=== PATIENT | female | born 1965 | race Caucasian/White ===

== ENCOUNTER 2024-07-31 07:35 | Outpatient (REF) | payer OTHER, SELFPAY ==
--- OUTSIDE RECORDS SUMMARY | 2024-07-31 07:38 | XMS_ITS | Data Portability ---
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 [email or web address] Not available 03/28/2024 15:41:39 04/05/2024 04/05/2024 I am seeing the patient today under the supervision of Dr Robbins who was available but who did not see the patient. [email or web address] Not available 04/05/2024 14:36:01 04/11/2024 04/11/2024 I am seeing the patient today under the supervision of Dr Robbins who was available but who did not see the patient. [email or web address] Not available 04/11/2024 14:15:36 05/02/2024 05/02/2024 I am seeing the patient today under the supervision of Dr Robbins who was available but who did not see the patient. [email or web address] Not available 05/02/2024 14:01:01 06/27/2024 06/27/2024 I am seeing the patient today under the supervision of Dr Robbins who was available but who did not see the patient. [email or web address] Not available 06/27/2024 14:57:44 Plan of Treatment Reminders Order Date Submit Date Provider Last Modified By Organization Details Last Modified Time Details Appointments RECHECK 15 2024 01:00P M Sony Zwirko, PA-C Not available Not available Not available Lab None recorded. Referral None recorded. Procedures None recorded. Surgeries None recorded. Imaging MRI, knee, w/o contrast - MRI RIGHT KNEE W/O CONTRAST EVAL FOR MMT 2024 025 [facility] ([facility] [address], [place], [address], 04/04/2024 09:07:59 Medication Orders None recorded. Patient TargetsNo targets recorded. Patient InstructionsNo instructions recorded. Reason for Referral None Reported. Results Created Date Observation Date Name Description Value Unit Range Abnormal Flag Note LastModifiedBy Organization Detail LastModifiedTime 03/25/19 25 03/25/2024 XR, knee, 4 or more view No observ ation record ed. [facility] [address], [place], [address], 03/29/2024 14:26:17 04/04/19 25 04/02/2024 MRI, knee, w/o contr ast [facility] Access ion Number : [id number] Jamari t Name: Natalie Spears Record Number : [id number] Date of : 1965 Date of Exam: 2024 Referr ing Physic burton: [facility] [address], [address] [facility] [address] Exam: MR Knee (C-) CPT 60388 - Right Room Descri ption: [facility] Pion 3T MRI right knee Histor y: Pain Findin gs: Medial menisc us is intact . Mild thinni ng and irregu larity within vehicle and equipment cleaner ior weight bearin g surfac e cartil age of the medial femora l condyl e near the interc ondyla r notch. Latera l menisc us is intact . 1 x 1.5 cm focal chondr al defect within vehicle and equipment cleaner ior nonwei ghtbea ring surfac e cartil age of the latera l femora l condyl e on image 11 of series 3. The ACL and PCL are intact The MCL is intact The LCL comple x includ ing the biceps femori s, poplit eus and fibula r collat eral ligame nts are intact The medial and latera l patell ar retina cula are intact . Diffus e absenc e of patell ar cartil age. Thinni ng, irregu larity and fissur ing within trochl ear groove cartil age. Small patell ofemor al osteop hytes The extens or mechan ism is intact . Locula rabia Crawford' s cyst measur es up to 3 cm AP by 12 cm cranio caudal . Most caudal portio n of the Crawford' s cyst is mildly comple x and has some mass effect on the underl silvana medial head of the gastro cnemiu s muscle . Impres robin: No eviden ce of menisc us or ligame nt tear. Medial compar tment, latera l compar tment and advanc ed patell ofemor al compar tment chondr omalac ia is outlin ed above. Small patell ofemor al compar tment osteop hytes. Large locula rabia Crawford' s cyst as detail ed above Electr onical ly Signed By: Estela Kim MD [email or web address] [facility] ([facility]) [address] [place], [address], 04/05/2024 06:58:45 Result Notes None recorded. Problems Name Problem SNOMED Code Status Onset Date Resolution Date Notes Provider Name and Address Organization Details Recorded Time Trigger thumb of left hand 966201261292 107 Active 2023 Sony Hernandez PA-C [address], [place], [address] , [facility] 4 14:24:47 Impingeme nt syndrome of right shoulder region 769460099070 102 Active 2023 Sony Hernandez PA-C [address], [place], [address] , [facility] - [facility] 4 14:24:55 Pain in right lower limb 080004839 Active 2024 [place], [place] - [facility] 5 15:15:54 Osteoarth ritis of right knee joint 246095529219 100 Active 2024 Sony Hernandez PA-C [address], [place], [address] , [facility] - [facility] 5 14:15:37 Primary gonarthro sis, bilateral 581029267 Active 2024 Sony Hernandez PA-C [address], [place], [address] , [facility] - [facility] 5 14:57:31 Pain of right shoulder region Active 2024 Sony Hernandez PA-C [address], [place], [address] , [facility] - [facility] 5 14:57:38 Lateral epicondyl itis of left humerus 559618199075 100 Active 2017 Problem Code: M77.12; Problem Code Type: ICD-10; Status: 'A'; Not Available [facility] 4 10:55:47 Chondroma lacia of left patella 040837045740 106 Active 2017 Problem Code: M22.42; Problem Code Type: ICD-10; Status: 'A'; Not Available [facility] 4 10:55:47 Carpal tunnel syndrome of left wrist 961432782456 102 Active 2017 Problem Code: G56.02; Problem Code Type: ICD-10; Status: 'A'; Not Available [facility] 4 10:55:47 Bursitis of left knee 773050696526 9109 Active 2017 Problem Code: M70.52; Problem Code Type: ICD-10; Status: 'A'; Not Available [facility] 4 10:55:47 Lesion of right ulnar nerve 443843340137 103 Active 2017 Problem Code: G56.21; Problem Code Type: ICD-10; Status: 'A'; Not Available [facility] 4 10:55:47 Osteoarth ritis of left knee joint 900473630034 109 Active 2023 Sony Hernandez PA-C [address], [place], [address] , [facility] 15:41:43 Problem Notes None recorded. Procedures Surgical History Date Name Laterality Status Provider Name and Address Organization Details Recorded Time 5 JZShoulder INJ completed Sony Hernandez PA-C [address], [place], [address], [facility] 06/27/2024 14:57:21 5 JZKNEE INJ Dragan completed Sony Hernandez PA-C [address], [place], [address], [facility] 06/27/2024 14:56:40 5 JZKNEE INJ completed Sony Hernandez PA-C [address], [place], [address], [facility] 05/02/2024 14:00:58 5 Euflexxa Knee Injection completed Sony Hernandez PA-C [address], [place], [address], [facility] 04/11/2024 14:15:52 5 JZKNEE INJ completed Sony Hernandez PA-C [address], [place], [address], [facility] 04/05/2024 14:46:52 5 Euflexxa Knee Injection completed Sony Hernandez PA-C [address], [place], [address], [facility] 04/05/2024 14:46:48 5 JZ Knee Aspiration completed Sony Hernandez PA-C [address], [place], [address], [facility] 03/28/2024 15:41:31 5 Euflexxa Knee Injection completed Sony Hernandez PA-C [address], [place], [address], [facility] 03/28/2024 15:40:32 4 JZKNEE INJ Dragan completed Sony Hernandez PA-C [address] [facility], [place], [address], [facility] 01/25/2024 13:30:33 4 JZ Knee Aspiration completed Sony Hernandez PA-C [address] [facility], [place], [address], [facility] 11/23/2023 14:45:29 4 JZKNEE INJ completed Sony Hernandez PA-C [address] [facility], [place], [address], [facility] 08/24/2023 14:24:38 4 JZShoulder INJ completed Sony Hernandez PA-C [address] [facility], [place], [address], [facility] 08/24/2023 14:24:31 4 JZTrigger Finger Injection completed Sony Hernandez PA-C [address] [facility], [place], [address], [facility] 08/24/2023 14:24:36 4 JZKNEE INJ completed Sony Hernandez PA-C [address] [facility], [place], [address], [facility] 06/22/2023 10:30:18 4 Sports Knee Aspiration completed Sony Hernandez PA-C [address] [facility], [place], [address], [facility] 05/11/2023 13:43:25 Imaging Results None recorded. Procedure Notes None recorded. Medical Equipment None Reported. Allergies Allergen ID Allergen Name Allergen Category Reaction Reaction Severity Criticality Documentation Date Start Date Code Code System Note Provider Name and Address Organization Details Recorded Time 67941 Bactrim medicatio n Not available Not available Not available 04/25/20232010 22609 9 RxNorm Aller gyRea ction : 'Skin React ion'; Not Available [facility] 15:13:19 86077 Substance with sulfonami de structure and antibacte rial mechanism of action (substanc e) medicatio n Not available Not available Not available 04/25/20232010 74279 8003 SNOMED Aller gyRea ction : 'Skin React ion'; Not Available [facility] 4 15:13:19 91838 Macrobid medicatio n Not available Not available Not available 04/25/20232010 54578 1 RxNorm Aller gyRea ction : 'Skin React ion'; Not Available [facility] 15:13:19 Medications Name Sig Start Date Stop Date Status Note LastModified by Organization Details LastModified Time hydrocodone 7.5 mg-ibuprofe n 200 mg tablet TAKE 1 TABLET BY MOUTH THREE TIMES A DAY NEEDED FOR PAIN 05/10 completed Not Available Not Available Not Available terconazole 0.4 % vaginal cream INSERT 1 APPLICATO RFUL VAGINALLY AT BEDTIME FOR 7 DAYS 05/10 completed Not Available Not Available Not Available promethazin e-DM 6.25 mg-15 mg/5 mL oral syrup TAKE 5 MILLILITE RS BY MOUTH EVERY 4 HOURS NEEDED FOR COUGH 06/27 completed Not Available Not Available Not Available prednisone 10 mg tablet 4 TABS DAILY X4 DAYS, 3 TABS DAILY X4 DAYS, 2 TABS DAILY X4 DAYS THEN 1 TAB DAILY FOR 4 DAYS. 05/10 completed Not Available Not Available Not Available doxycycline hyclate 100 mg capsule TAKE 1 CAPSULE BY MOUTH TWICE A DAY FOR 10 DAYS 05/10 completed Not Available Not Available Not Available ipratropium 0.5 mg-albutero l 3 mg (2.5 mg base)/3 mL nebulizatio n soln USE 1 VIAL VIA NEBULIZER 4 TIMES A DAY NEEDED FOR 30 DAYS 11/22 completed Not Available Not Available Not Available azithromyci n 250 mg tablet TAKE 2 TABLETS BY MOUTH TODAY, THEN TAKE 1 TABLET DAILY FOR 4 DAYS 05/10 completed Not Available Not Available Not Available tizanidine 4 mg tablet TAKE 1 TABLET BY MOUTH EVERY 8 HOURS NEEDED active Not Available Not Available No t Available fluconazole 150 mg tablet TAKE 1 TABLET BY MOUTH ONCE AT THE END OF ANTIBIOTI C THERAPY active Not Available Not Available No t Available benzonatate 200 mg capsule TAKE 1 CAPSULE (ORAL) 3 TIMES PER DAY NEEDED FOR COUGH FOR 5 DAYS 11/22 completed Not Available Not Available Not Available Retin-A 0.1 % topical cream APPLY PEA SIZED AMOUNT TO ENTIRE FACE AT BEDTIME active Not Available Not Available No t Available prednisone 20 mg tablet TAKE 1 TABLET BY MOUTH EVERY DAY FOR 5 DAYS 11/22 completed Not Available Not Available Not Available clonazepam 0.5 mg tablet TAKE 1-3 TABLETS BY MOUTH EVERY DAY NEEDED MAX 3/DAY active Not Available Not Available No t Available prednisone 5 mg tablet TAKE 1 TABLET BY MOUTH EVERY DAY FOR 30 DAYS 05/10 completed Not Available Not Available Not Available terconazole 0.8 % vaginal cream INSERT 1 APPLICATO RFUL VAGINALLY AT BEDTIME FOR 3 DAYS 05/10 completed Not Available Not Available Not Available clonazepam 1 mg tablet active Not Available Not Available Not Available venlafaxine ER 150 mg capsule,ext ended release 24 hr TAKE 1 CAPSULE BY MOUTH TWICE A DAY FOR 30 DAYS active Not Available Not Available No t Available butalbital 50 mg-acetamin ophen 325 mg tablet TAKE 1 TABLET BY MOUTH DAILY NEEDED FOR TENSION TYPE HEADACHE active Not Available Not Available No t Available topiramate 25 mg tablet PLEASE SEE ATTACHED FOR DETAILED DIRECTION S active Not Available Not Available No t Available ciprofloxac in 250 mg tablet TAKE 1 TABLET BY MOUTH EVERY 12 HOURS FOR 5 DAYS 05/10 completed Not Available Not Available Not Available tramadol 50 mg tablet TAKE 1 TABLET EVERY 6 HOURS BY ORAL ROUTE AFTER MEAL(S). active Not Available Not Available No t Available amoxicillin 875 mg tablet TAKE 1 TABLET BY MOUTH TWICE A DAY FOR 7 DAYS 11/22 completed Not Available Not Available Not Available rizatriptan 10 mg disintegrat ing tablet PLEASE SEE ATTACHED FOR DETAILED DIRECTION S active Not Available Not Available No t Available pantoprazol e 40 mg tablet,brandon yed release TAKE 1 TABLET BY MOUTH EVERY DAY active Not Available Not Available No t Available dexamethaso ne 4 mg tablet TAKE 1 TABLET (4 MG TOTAL) BY MOUTH DAILY WITH BREAKFAST FOR 5 DAYS. TAKE WITH FOOD. 06/27 completed Not Available Not Available Not Available prednisone 50 mg tablet TAKE 1 TABLET BY MOUTH EVERY DAY FOR 5 DAYS 05/10 completed Not Available Not Available Not Available betamethaso ne dipropionat e 0.05 % topical cream APPLY TO AFFECTED AREA ON BACK TWICE A DAY NEEDED , WEAN OFF IMPROVE 11/22 completed Not Available Not Available Not Available gabapentin 300 mg capsule TAKE 1 CAPSULE (300 MG) BY ORAL ROUTE 1 TIMES A DAY active Not Available Not Available No t Available clindamycin 2 % vaginal cream INSERT 1 APPLICATO RFUL VAGINALLY EVERY DAY AT BEDTIME FOR 5 DAYS 06/27 completed Not Available Not Available Not Available norethindro ne acetate 5 mg tablet TAKE TWICE A DAY FOR 7 DAYS 05/10 completed Not Available Not Available Not Available lorazepam 1 mg tablet TAKE 1 TABLET NEEDED ORALLY UP TO EVERY 8 HOURS active Not Available Not Available No t Available estradiol 0.01% (0.1 mg/gram) vaginal cream INSERT 1 GRAM VAGINALLY 3 TIMES EVERY WEEK active Not Available Not Available No t Available methylpredn isolone 4 mg tablets in a dose pack TAKE 6 TABLETS ON DAY 1 DIRECTED ON PACKAGE AND DECREASE BY 1 TAB EACH DAY FOR A TOTAL OF 6 DAYS 06/27 completed Not Available Not Available Not Available albuterol sulfate HFA 90 mcg/actuati on aerosol inhaler INHALE 1 PUFF EVERY 6 HOURS NEEDED active Not Available Not Available No t Available doxycycline hyclate 100 mg tablet TAKE 1 TABLET BY MOUTH TWICE A DAY FOR 7 DAYS 06/27 completed Not Available Not Available Not Available fluticasone propionate 110 mcg/actuati on HFA aerosol inhaler INHALE 2 PUFFS BY MOUTH TWICE A DAY active Not Available Not Available No t Available naproxen 500 mg tablet TAKE 1 TABLET BY MOUTH EVERY 12 HOURS NEEDED active Not Available Not Available No t Available amoxicillin 875 mg-potassiu m clavulanate 125 mg tablet TAKE 1 TABLET BY MOUTH EVERY 12 HOURS FOR 10 DAYS 06/27 completed Not Available Not Available Not Available azithromyci n 500 mg tablet TAKE 1 TABLET BY MOUTH DAILY DIRECTED 05/10 completed Not Available Not Available Not Available cyclobenzap rine 5 mg tablet TAKE 1 TABLET 1 HOUR BEFORE BED active Not Available Not Available No t Available nitrofurant oin monohydrate /macrocryst als 100 mg capsule TAKE 1 CAPSULE BY MOUTH TWICE A DAY FOR 5 DAYS 06/27 completed Not Available Not Available Not Available chlorhexidi ne gluconate 0.12 % mouthwash RINSE WITH 15 ML, HOLD FOR 30 SECONDS AND EXPECTORA TE TWICE A DAY FOR 7 DAYS START DAY AFTER SURGERY 05/10 completed Not Available Not Available Not Available gabapentin Gabapenti n 250MG/5ML Solution 04/25 completed Statu s: 'Disc ontin ued'; Not Available Not Available Not Available Symbicort 160 mcg-4.5 mcg/actuati on HFA aerosol inhaler INHALE 1 PUFF BY MOUTH TWICE A DAY FOR 14 DAYS 06/27 completed Not Available Not Available Not Available Symbicort 80 mcg-4.5 mcg/actuati on HFA aerosol inhaler TAKE 2 PUFFS BY MOUTH TWICE A DAY IN THE MORNING AND IN THE EVENING active Not Available Not Available No t Available naltrexone HCl (bulk) 100 % powder active Not Available Not Available Not Available diclofenac 1 % topical gel APPLY 1 GRAM 4 TIMES A DAY NEEDED FOR PAIN active Not Available Not Available No t Available Botox 200 unit injection 05/10 completed Not Available Not Available Not Available Slow Release Iron 143 mg (45 mg iron) tablet,exte nded release TAKE 1 TABLET BY MOUTH THREE TIMES A DAY active Not Available Not Available No t Available Myrbetriq 50 mg tablet,exte nded release TAKE 1 TABLET BY MOUTH EVERY DAY DIRECTED active Not Available Not Available No t Available Ubrelvy 100 mg tablet TAKE 1 TABLET BY MOUTH ONCE MAY REPEAT DOSE ONCE AFTER 2 HOURS IF NEEDED, MAX 200MG/24H R active Not Available Not Available No t Available [facility] ODT 75 mg disintegrat ing tablet TAKE 1 TABLET ON TONGUE, DISSOLVE THEN SWALLOW ONCE NEEDED FOR MIGRAINE MAX 1/24 HRS X30 DAYS 06/27 completed Not Available Not Available Not Available Vitals Date Recorded Body height Body mass index (BMI) Body weight Provider Name and Address Organization Details Last Updated DateTime 03/28/2024 162.56 cm 18.4 kg/m2 00021.38 g Martin Omer [place] - [facility] 03/28/2024 15:04:33 Date Recorded Body height Body mass index (BMI) Body weight Provider Name and Address Organization Details Last Updated DateTime 04/05/2024 162.56 cm 18.4 kg/m2 15775.38 g Martin Omer [facility] 04/05/2024 14:36:23 Date Recorded Body height Provider Name an d Address Organization Details Last Updated DateTime 04/11/2024 162.56 cm Librado Ingram-C [address], [place], [address], [facility] 04/11/2024 14:15:39 Date Recorded Body height Body mass index (BMI) Body weight Provider Name and Address Organization Details Last Updated DateTime 05/02/2024 162.56 cm 18.4 kg/m2 38282.38 g [facility] 05/02/2024 13:30:39 Date Recorded Body height Body mass index (BMI) Body weight Provider Name and Address Organization Details Last Updated DateTime 06/27/2024 162.56 cm 18.4 kg/m2 31886.38 g Martin [facility] 06/27/2024 14:46:23 Social History None recorded. Functional Status None recorded. Mental Status None recorded. Family History Nothing Reported. Medical History No medical history recorded. Gynecological HistoryNo gynecological history recorded. Obstetrics History GPAL:G 0 P 0 0 0 0 Past Encounters Encounter ID Performer Location Encounter Start Date Encounter Closed Date Diagnosis/Indication Diagnosis SNOMED-CT Code Diagnosis ICD10 Code Diagnosis Note [id number] MD Freya Sainz [address] [place] [address] 05/11/2023 13:16:52 05/11/2023 13:41:59 Bursitis of left knee 1207334046 661584 M70.52 Osteoarthr itis of left knee joint 1966303154 24293 M17.12 [id number] WARREN Ingram [address] [place] [address] 06/22/2023 09:59:41 07/13/2023 14:44:21 Osteoarthritis of left knee joint 0886739523 57036 M17.12 [id number] Sony Hernandez PA-C [facility] [address] [place] [address] 08/24/2023 13:32:07 09/22/2023 10:12:58 Bursitis of left knee 8786513449 496274 M70.52 Trigger th umb of left hand 4232185851 32316 M65.312 Impingemen t syndrome of right shoulder region 7672679816 31648 M75.41 [id number] Sony Hernandez PA-C [facility] [address] [place] [address] 11/23/2023 14:26:42 11/23/2023 14:54:15 Bursitis of left knee 3659952559 252293 M70.52 [id number] Sony Hernandez [facility]-C [facility] [address] [place] [address] 01/25/2024 12:56:03 02/21/2024 08:16:12 Bursitis of left knee 4830919450 835599 M70.52 Primary go narthrosis, bilateral 131412108 M17.0 [id number] Sony Hernandez PA-C [facility] - [facility] [address] [place] [address] 03/28/2024 14:58:29 04/11/2024 15:12:47 Derangement of right knee 2429077613 0450271 M23.91 Osteoarthr itis of left knee joint 1156008278 87110 M17.12 [id number] Sony Hernandez PA-C [facility] [address] [place] [address] 04/05/2024 14:32:09 04/24/2024 09:03:28 Osteoarthritis of left knee joint 0655519905 45467 M17.12 Osteoarthr itis of right knee joint 8342053512 41542 M17.11 [id number] Sony Hernandez PA-C [facility] - [facility] [address] [place] [address] 04/11/2024 14:08:01 04/27/2024 11:55:54 Osteoarthritis of left knee joint 3614988219 44776 M17.12 [id number] WARREN Ingram [facility] [address] [place] [address] 05/02/2024 13:25:17 05/17/2024 13:17:34 Bursitis of left knee 2857977943 337115 M70.52 [id number] WARREN Ingram - [facility] [address] [place] [address] 06/27/2024 14:40:01 07/13/2024 11:13:21 Primary gonarthrosis, bilateral 915173237 M17.0 Pain of ri ght shoulder region 0953974541 M25.511 Health Concerns Section Related Observation LastModified by Organization Detai ls LastModified Time None Recorded Concern Status LastModified by Organization Details LastModified Time None Recorded Advance Directives Directive None Recorded Payers Encounter Date Sequence Insurance Name Policy Number Policy Ibarra Covered Member ID Ibarra Member ID Guarantor Name 03/28/2024 1 [employer] Rosie Spears [id number] Rosie Spears 04/05/2024 1 [employer] Rosie Spears [id number] Rosie Spears 04/11/2024 1 [employer] Rosie Spears [id number] Rosie Spears 06/27/2024 1 [employer] Rosie Spears [id number] Rosie Spears OBGyn Episode No OBEpisode recorded.
== END 2024-07-31 07:36 | disposition home or self-care (01) ==
LOC: CF 07:35
DX: Z13.89 Encounter for screening for other disorder (principal)

== ENCOUNTER 2024-07-31 13:12 | Outpatient (AMB) | payer OTHER, SELFPAY ==
--- NOTE | 2024-07-31 13:13 | A.OFFVIS_ITS ---
Vital Signs 07/31/24 13:15 Height 5 ft 3 in BMI Reason not done Patient refused/unable BP 110/72 Blood Pressure Location Rt brachial Position Sitting Pulse 86 Pulse Source Pulse Oximeter Pulse Oximetry (%) 98 Oxygen Delivery Method Room Air Intake Visit Reasons: Pre Op - Aortic Valve Replacement - [facility] - 08/28 Allergies azithromycin Allergy (Intermediate, Verified 07/31/24 13:26) Vomiting diphenhydramine [From Benadryl] Allergy (Intermediate, Verified 07/31/24 13:26) Anaphylaxis doxycycline Allergy (Intermediate, Verified 07/31/24 13:26) Vomiting propranolol Allergy (Intermediate, Verified 07/31/24 13:26) Rash cephalexin [From Keflex] Allergy (Verified 07/31/24 13:26) c-dif methylcellulose [From Citrucel (sucrose)] Allergy (Verified 07/31/24 13:26) hives,swelling Joint pain sucrose [From Citrucel (sucrose)] Allergy (Verified 07/31/24 13:26) hives,swelling Joint pain Sulfa (Sulfonamide Antibiotics) Allergy (Verified 07/31/24 13:26) rash verapamil Allergy (Verified 07/31/24 13:26) Rash levofloxacin [From Levaquin] Adverse Reaction (Intermediate, Verified 07/31/24 13:26) eye pain HPI HPI Pre Op - Aortic Valve Replacement - [facility] - 08/28: Details: Rosie is a pleasant 59 year old female, never smoker, with underlying asthma, allergic rhinitis, GERD, BLADIMIR and fibromyalgia. She was referred by PCP for pe rioperative pulmonary evaluation for upcoming aortic valve replacement scheduled on 08/28 through [facility] [address]. Jaden Norman. Patient reports longstanding history of mild,intermittent asthma since childhood, never requiring intubation, however recently treated for pneumonia likely related to aspiration. She notes on 07/04 she felt she aspirated on water and then slowly developed worsening chest jen estion and productive cough. She had a CXR performed on 07/10 which revealed subtle opacity of RML consistent with pneumonia and was started on doxycycline. Unfortunately developed nausea and could not tolerate, ultimately switched to Augmentin and completed course of prednisone. She reports symptoms lingered for about two weeks and has been asymptomatic for the last 7-10 days. She currently denies any respiratory symptoms. She previously had worsening symptoms in the fall, in which she required ICS, otherwise uses ICS/HUANG a few times per year. She endorses seasonal allergies, controlled with PRN antihistamine, not significant trigger of asthma. She denies h/o recurrent respiratory infections. She denies prior hospitalizations related to respiratory distress. She denies any occupational exposures. She reports sister with asthma otherwise denies any pertinent family history. [facility] Social History (Updated 07/31/24 @ 13:16 by Beverly Reagan [facility]) Patient Tobacco Use Status: Never used Tobacco Review of Systems Const Denies chills, Denies excessive sweating, Denies fever(s), Denies headache(s) and Denies night sweats Eyes Denies dry eyes, Denies irritation and Denies itchy eyes ENT Reports Normal hearing present, Denies headache(s), Denies nasal congestion, Denies nasal discharge, Denies post nasal drip and Denies sore throat Card Denies chest pain, Denies chest pain at rest, Denies chest pain with activity, Denies claudication, Denies leg edema, Denies dyspnea, Denies dyspnea on exertion, Denies orthopnea and Denies paroxysmal nocturnal dyspnea Resp Denies chest congestion, Denies cough, Denies excessive phlegm production, Denies pain on inspiration, Denies pain with cough, Denies dyspnea, Denies dyspnea on exertion, Denies stridor and Denies wheezing Musc Denies myalgias Neuro Reports Normal hearing present and Denies headache(s) Endo Denies excessive sweating [place]/Lymph Denies lymphadenopathy Aller/Immun Denies itchy eyes, Denies seasonal rhinorrhea and Denies wheezing Physical Exam Vital Signs: Last Vital Signs Pulse 86 07/31/24 13:15 BP 110/72 07/31/24 13:15 Pulse Ox 98 07/31/24 13:15 Oxygen Delivery Method Room Air 07/31/24 13:15 Const General: cooperative, healthy appearing, comfortable, no acute distress, well developed and alert Orientation/consciousness: patient oriented x3 Limitations: no limitations HEENT Head: Yes normal to inspection, Yes normocephalic and Yes atraumatic Ears: hearing grossly normal bilaterally and external ears normal Eyes General: appearance normal, both eyes and all related structures Eyelids: Yes eyelids normal Sclerae: sclerae normal EOM: EOMs intact bilaterally Neck Neck: Yes normal visual inspection and Yes no lymphadenopathy Lymphatic: no lymphadenopathy noted Chest Chest palpation & inspection: normal inspection of the chest Resp Effort & Inspection: normal respiratory effort, able to speak in complete sentences, no audible wheezes, no cough, no stridor, not tachypneic, no tripod positioning and no use of accessory muscles Auscultation: clear to auscultation bilaterally Cardio Jugular venous distension: no JVD Rate: regular rate Rhythm: regular rhythm Skin Other: warm, dry General skin exam: no rashes or lesions noted Neuro General: patient oriented x3 Cranial nerves: Yes Normal hearing present Cognition (Neuro): normal cognition Gait exam (Neuro): Normal gait present Extrem General: Yes normal to inspection, Yes capillary refill normal, Yes no clubbing, cyanosis or edema and Yes no pedal edema Psych Appearance: grossly normal and well kempt Speech and movement: Normal speech and movement present and Clear speech present Affect: normal affect Attitude: cooperative Thought process: Normal thought process present Thought content: Normal thought content present Insight: Good insight present (Psych) Judgement: Good judgement present (Psych) Assessment & Plan Assessment & Plan (1) Encounter for preoperative pulmonary examination: Code(s): Z01.811 - Encounter for preprocedural respiratory examination Category: Medical (2) Asthma: Code(s): J45.909 - Unspecified asthma, uncomplicated Category: Medical (3) Environmental allergies: Code(s): Z91.09 - Other allergy status, other than to drugs and biological substances Category: Medical Plan Rosie presents for perioperative pulmonary evaluation for proposed aortic valve replacement. At this time, she reports good control of respiratory symptoms and however recently developed pneumonia secondary to aspiration. Encouraged patient to restart Flovent now and continue until after surgery, to optimize respiratory status. Her VSS and respiratory exam are unremarkable. Will send for repeat CXR in two weeks to assess for resolution of PNA and will send for PFT to further risk stratify. Patient also noted she is in need of a new nebulizer as her current one is >15 years old, will send order for nebulizer for home use. She believes she has nebulized albuterol at home. All questions were answered and patient is in agreement of plan. Will follow up to review results or sooner if needed. Orders: Orders XR chest 2V Today Z87.01 - Personal history of pneumonia (recurrent) PFT pulmonary function test Today J45.909 - Unspecified asthma, uncomplicated Coding Level of Care Code New Pt Level 4 (23293) Diagnoses Encounter for preoperative pulmonary examination Z01.811 Asthma J45.909 Environmental allergies Z91.09
[2024-07-31 13:15] VITALS: BP 110/72; PULSE 86; O2SAT 98
== END 2024-07-31 14:18 | disposition home or self-care (01) ==
LOC: HO.HPSW 13:12
PROVIDERS: PCP Physician Assistant Medical; Visit Provider Nurse Practitioner Family
DX: Z01.811 Encounter for preprocedural respiratory examination (principal); J45.909 Unspecified asthma, uncomplicated; Z91.09 Other allergy status, other than to drugs and biological substances
CPT/HCPCS: 99204

== ENCOUNTER 2024-08-02 14:02 | Outpatient (REF) | payer OTHER, SELFPAY ==
--- OUTSIDE RECORDS SUMMARY | 2024-08-02 16:39 | XMS_ITS | Data Portability ---
Author Organization [place] [facility], [facility] Address [address] [place] [address] Care Team Providers Care Non Destructive Testing Inspector Name Role Phone [employer] [facility] Primary Care Pro vider Assessment Encounter [...] but who did not see the patient. Not available 04/05/2024 14:36:01 04/11/2024 04/11/2024 I am seeing the patient today under the supervision of Dr Robbins who was available but who did not see the patient. rodrigo Not available 04/11/2024 14:15:36 05/02/2024 05/02/2024 I [...] Organization Details Last Modified Time Details Appointments DO NOT BOOK 2024 11:00A M Sony Zwirko, PA-C Not available Not available Not available RECHECK 15 2024 01:00P M Sony Hernandez PA-C Not available Not available Not available Lab None recorded. Referral None recorded. Procedures None recorded. Surgeries None recorded. Imaging MRI, knee, w/o contrast - MRI RIGHT KNEE W/O CONTRAST EVAL FOR MMT 2024 025 [facility] ([facility]), [address], [place], [address], 04/04/2024 09:07:59 Medication Orders None recorded. Patient TargetsNo targets recorded. Patient InstructionsNo instructions recorded. Reason for Referral None Reported. Results Created Date Observation Date Name Description Value Unit Range Abnormal Flag Note LastModifiedBy Organization Detail LastModifiedTime 03/25/1903/25/2024 XR, knee, 4 or more view No observ ation record ed. [facility] [address], [place], [address], 03/29/2024 14:26:17 04/04/19 25 04/02/2024 MRI, knee, w/o contr ast [facility] Access ion Number : [id number] Name: Natalie Spears Record Number : [id number] Date of : 1965 Date of Exam: 2024 Referr ing Physic burton: Sony [facility] [address], [address] [facility], [facility] [address] Exam: MR Knee (C-) CPT 77927 - Right Room Descri ption: [facility] Pion 3T MRI right knee Histor y: Pain Findin gs: Medial menisc us is intact . Mild thinni ng and irregu larity within chain machine operator ior weight bearin g surfac e cartil age of the medial femora l condyl e near the interc ondyla r notch. Latera l menisc us is intact . 1 x 1.5 cm focal chondr al defect within chain machine operator ior nonwei ghtbea ring surfac e cartil [...] ly Signed By: Estela Kim MD [email or web address] [facility] ([facility]) [address], [place], [address], 04/05/2024 06:58:45 Result Notes None recorded. Problems Name Problem SNOMED Code Status Onset Date Resolution Date Notes Provider Name and Address Organization Details Recorded Time Trigger thumb of left hand 174683711410 107 Active 2023 Sony Hernandez PA-C [address], [place], [address] , [facility] - [facility] 4 14:24:47 Impingeme nt syndrome of right shoulder region 637600141444 102 Active 2023 Sony Hernandez PA-C [address], [place], [address] , [facility] - [facility] 4 14:24:55 Pain in right lower limb 348320292 Active 2024 FEDE scott [place] - [facility] 5 15:15:54 Osteoarth ritis of right knee joint 996033380642 100 Active 2024 Sony Hernandez PA-C [address], [place], [address] , [facility] - [facility] 5 14:15:37 Primary gonarthro sis, bilateral 452666833 Active 2024 Sony Hernandez PA-C [address], [place], [address] , [facility] - [facility] 5 14:57:31 Pain of right shoulder region Active 2024 Sony Hernandez PA-C [address], [place], [address] , [facility] 5 14:57:38 Lateral epicondyl itis of left humerus 017932360220 100 Active 2017 Problem Code: M77.12; Problem Code Type: ICD-10; Status: 'A'; Not Available [facility] 4 10:55:47 Chondroma lacia of left patella 125788429499 106 Active 2017 Problem Code: M22.42; Problem Code Type: ICD-10; Status: 'A'; Not Available [facility] 4 10:55:47 Carpal tunnel syndrome of left wrist 106865125386 102 Active 2017 Problem Code: G56.02; Problem Code Type: ICD-10; Status: 'A'; Not Available [facility] 4 10:55:47 Bursitis of left knee 715982043164 9109 Active 2017 Problem Code: M70.52; Problem Code Type: ICD-10; Status: 'A'; Not Available [facility] 4 10:55:47 Lesion of right ulnar nerve 053189455270 103 Active 2017 Problem Code: G56.21; Problem Code Type: ICD-10; Status: 'A'; Not Available [facility] 4 10:55:47 Osteoarth ritis of left knee joint 614097820261 109 Active 2023 Sony Hernandez PA-C [address], [place], [address] , [facility] 5 15:41:43 Problem Notes None recorded. Procedures Surgical History Date Name Laterality Status Provider Name and Address Organization Details Recorded Time 5 JZShoulder INJ completed Sony Hernandez PA-C [address], [place], [address], [facility] 06/27/2024 14:57:21 5 JZKNEE INJ Dragan completed Sony Hernandez PA-C [address], [place], [address], [facility] 06/27/2024 14:56:40 5 JZKNEE INJ completed Sony Hernandez PA-C [address], [place], [address], [facility] 05/02/2024 14:00:58 5 Euflexxa Knee Injection completed Sony Hernandez PA-C [address], [place], [address], [facility] 04/11/2024 14:15:52 5 JZKNEE INJ completed Sony Hernandez PA-C [address], [place], [address], [facility] 04/05/2024 14:46:52 5 Euflexxa Knee Injection completed Sony Hernandez PA-C [address], [place], [address], [facility] 04/05/2024 14:46:48 5 JZ Knee Aspiration completed Sony Hernandez PA-C [address], [place], [address], [facility] 03/28/2024 15:41:31 5 Euflexxa Knee Injection completed Sony Hernandez PA-C [address], [place], [address], [facility] 03/28/2024 15:40:32 4 JZKNEE INJ Dragan completed Sony Hernandez PA-C [address], [place], [address], [facility] 01/25/2024 13:30:33 4 JZ Knee Aspiration completed Sony Hernandez PA-C [address], [place], [address], [facility] 11/23/2023 14:45:29 4 JZKNEE INJ completed Sony Hernandez PA-C [address], [place], [address], [facility] 08/24/2023 14:24:38 4 JZShoulder INJ completed Sony Hernandez PA-C [address], [place], [address], [facility] 08/24/2023 14:24:31 4 JZTrigger Finger Injection completed Sony Hernandez PA-C [address], [place], [address], [facility] 08/24/2023 14:24:36 4 JZKNEE INJ completed Sony Hernandez PA-C [address], [place], [address], [facility] 06/22/2023 10:30:18 4 Sports Knee Aspiration completed Sony Hernandez PA-C [address], [place], [address], [facility] 05/11/2023 13:43:25 Imaging Results None recorded. Procedure Notes None recorded. Medical Equipment None Reported. Allergies Allergen ID Allergen Name Allergen Category Reaction Reaction Severity Criticality Documentation Date Start Date Code Code System Note Provider Name and Address Organization Details Recorded Time 75182 Bactrim medicatio n Not available Not available Not available 04/25/20232010 79855 9 RxNorm Aller gyRea ction : 'Skin React ion'; Not Available [facility] 4 15:13:19 63747 Substance with sulfonami de structure and antibacte rial mechanism of action (substanc e) medicatio n Not available Not available Not available 04/25/20232010 72163 8003 SNOMED Aller gyRea ction : 'Skin React ion'; Not Available [facility] 4 15:13:19 32507 Macrobid medicatio n Not available Not available Not available 04/25/20232010 47578 1 RxNorm Aller gyRea ction : 'Skin React ion'; Not Available [facility] 4 15:13:19 Medications Name Sig Start Date Stop [...] Not Available Not Available No t Available Nurtec ODT 75 mg disintegrat ing tablet TAKE 1 TABLET ON TONGUE, DISSOLVE THEN SWALLOW ONCE NEEDED FOR MIGRAINE MAX 1/24 HRS X30 DAYS 06/27 completed Not Available Not Available Not Available Vitals Date Recorded Body height Body mass index (BMI) Body weight Provider Name and Address Organization Details Last Updated DateTime 03/28/2024 162.56 cm 18.4 kg/m2 72514.38 g Martin Omer [place] [facility] 03/28/2024 15:04:33 Date Recorded Body height Body mass index (BMI) Body weight Provider Name and Address Organization Details Last Updated DateTime 04/05/2024 162.56 cm 18.4 kg/m2 35633.38 g Martin Omer [facility] 04/05/2024 14:36:23 Date Recorded Body height Provider Name an d Address Organization Details Last Updated DateTime 04/11/2024 162.56 cm Librado Ingram [address], [place], [address], [facility] 04/11/2024 14:15:39 Date Recorded Body height Body mass index (BMI) Body weight Provider Name and Address Organization Details Last Updated DateTime 05/02/2024 162.56 cm 18.4 kg/m2 81660.38 g Martin Omer [facility] 05/02/2024 13:30:39 Date Recorded Body height Body mass index (BMI) Body weight Provider Name and Address Organization Details Last Updated DateTime 06/27/2024 162.56 cm 18.4 kg/m2 80460.38 g Martin Omer [facility] 06/27/2024 14:46:23 Social History None recorded. Functional Status None recorded. Mental Status None recorded. Family History Nothing Reported. Medical History No medical history recorded. Gynecological HistoryNo gynecological history recorded. Obstetrics History GPAL:G 0 P 0 0 0 0 Past Encounters Encounter ID Performer Location Encounter Start Date Encounter Closed Date Diagnosis/Indication Diagnosis SNOMED-CT Code Diagnosis ICD10 Code Diagnosis Note [id number] MD Freya Sainz [address] [place] [address] 05/11/2023 13:16:52 05/11/2023 13:41:59 Bursitis of left knee 5599271245 917580 M70.52 Osteoarthr itis of left knee joint 9278792032 11776 M17.12 [id number] WARREN Ingram [address] [place] [address] 06/22/2023 09:59:41 07/13/2023 14:44:21 Osteoarthritis of left knee joint 6489474331 88365 M17.12 [id number] Sony Hernandez PA-C [facility] [address] [place] [address] 08/24/2023 13:32:07 09/22/2023 10:12:58 Bursitis of left knee 7828123744 316047 M70.52 Trigger th umb of left hand 9425787762 44986 M65.312 Impingemen t syndrome of right shoulder region 5835322142 54999 M75.41 [id number] Sony Hernandez PA-C [facility] [address] [place] [address] 11/23/2023 14:26:42 11/23/2023 14:54:15 Bursitis of left knee 8509319528 301533 M70.52 [id number] Sony Hernandez PA-C [address] [address] [place] [address] 01/25/2024 12:56:03 02/21/2024 08:16:12 Bursitis of left knee 7028532156 554961 M70.52 Primary go narthrosis, bilateral 563905452 M17.0 [id number] Sony Hernandez PA-C [facility] [address] [place] [address] 03/28/2024 14:58:29 04/11/2024 15:12:47 Derangement of right knee 8086349137 3196405 M23.91 Osteoarthr itis of left knee joint 1538853262 94568 M17.12 [id number] Sony Hernandez PA-C [facility] [address] [place] [address] 04/05/2024 14:32:09 04/24/2024 09:03:28 Osteoarthritis of left knee joint 1528431714 03501 M17.12 Osteoarthr itis of right knee joint 0043679216 17560 M17.11 [id number] Sony Hernandez PA-C [facility] [address] [place] [address] 04/11/2024 14:08:04/27/2024 11:55:54 Osteoarthritis of left knee joint 2932649907 14778 M17.12 [id number] WARREN Ingram [address] [place] [address] 05/02/2024 13:25:17 05/17/2024 13:17:34 Bursitis of left knee 0042423676 120778 M70.52 [id number] WARREN Ignram [address] [place] [address] 06/27/2024 14:40:01 07/13/2024 11:13:21 Primary gonarthrosis, bilateral 924951700 M17.0 Pain of ri ght shoulder region 3022566269 M25.511 Health Concerns Section Related Observation LastModified by Organization Detai ls LastModified Time None Recorded Concern Status LastModified by Organization Details LastModified Time None Recorded Advance Directives Directive None Recorded Payers Insurance Date Sequence Insurance Name Policy Number Policy Ibarra Covered Member ID Ibarra Member ID Guarantor Name 03/23/2024 1 [employer] - TOGETHER (MEDICAID HMO) [id number] Rosie Spears [id number] Rosie Spears 07/13/2024 1 [facility] Rosie Spears [id number] Rosie Spears OBGyn Episode No OBEpisode recorded.
== END 2024-08-02 14:03 | disposition home or self-care (01) ==
LOC: HO.RESP 14:02
PROVIDERS: PCP Physician Assistant Medical; Visit Provider Nurse Practitioner Family
DX: Z13.89 Encounter for screening for other disorder (principal)

== ENCOUNTER 2024-08-02 15:26 | Outpatient (REF) | payer OTHER, SELFPAY ==
--- NOTE | 2024-08-02 16:30 | PFT_ITS ---
Flows: FEV1: 106 % of predicted at 2.58 L FVC: 110 % of predicted at 3.39 L FEV1/FVC: 76 % Bronchodilator response: Absent Volumes: Total lung capacity: 109 % of predicted at 5.40 L Residual volume: 118 % of predicted at 1.94 L Slow vital capacity: 104 % of predicted at 3.46 L Expiratory reserve volume: 111 % of predicted at 0.91 L Diffusion capacity: Normal Impression: No obstructive or restrictive ventilatory defect. No bronchodilator response. Normal pulmonary function test. MTDD
[2024-08-02 16:33] VITALS: PULSE 90; O2SAT 99
== END 2024-08-02 15:27 | disposition home or self-care (01) ==
LOC: HO.RESP 15:26
PROVIDERS: Visit Provider Nurse Practitioner Family
DX: J45.909 Unspecified asthma, uncomplicated (principal)
CPT/HCPCS: 94010; 94640; 94727; 94729

== ENCOUNTER → 2024-08-02 16:30 | Outpatient (BNV) | payer OTHER, SELFPAY | PROVIDERS: Visit Provider Internal Medicine Pulmonary Disease | DX: Z01.818 Encounter for other preprocedural examination (principal); J45.909 Unspecified asthma, uncomplicated | CPT/HCPCS: 94060; 94727; 94729 ==

== ENCOUNTER 2024-08-06 14:07 | Outpatient (AMB) | payer OTHER, SELFPAY ==
--- NOTE | 2024-08-06 14:15 | A.OFFVIS_ITS ---
Vital Signs 3 08/06/24 14:30 Height 5 ft 3 in Weight 110 lb BMI 19.5 BP 118/63 Blood Pressure Location Lt brachial Position Sitting Pulse 86 Intake Visit Reasons: Fat Necrosis Abdomen Intake Note: Patient is seen in office for evaluation and treatment of fat necrosis of the abdomen. 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 Accompanied by: Self / Same As Patient Allergies azithromycin Allergy (Intermediate, Verified 08/06/24 14:27) Vomiting diphenhydramine [From Benadryl] Allergy (Intermediate, Verified 08/06/24 14:27) Anaphylaxis doxycycline Allergy (Intermediate, Verified 08/06/24 14:27) Vomiting propranolol Allergy (Intermediate, Verified 08/06/24 14:27) Rash cephalexin [From Keflex] Allergy (Verified 08/06/24 14:27) c-dif methylcellulose [From Citrucel (sucrose)] Allergy (Verified 08/06/24 14:27) hives,swelling Joint pain sucrose [From Citrucel (sucrose)] Allergy (Verified 08/06/24 14:27) hives,swelling Joint pain Sulfa (Sulfonamide Antibiotics) Allergy (Verified 08/06/24 14:27) rash verapamil Allergy (Verified 08/06/24 14:27) Rash levofloxacin [From Levaquin] Adverse Reaction (Intermediate, Verified 08/06/24 14:27) eye pain Medication List - Last Reconciled 08/06/24 by Estuardo Evans MD albuterol sulfate 90 mcg/actuation (Ventolin HFA) 2 puffs inhalation Q6H PRN aspirin 81 mg PO DAILY cholecalciferol (vitamin D3) 50 mcg PO DAILY clonazepam 0.75 mg PO BEDTIME ferrous sulfate, dried ER (iron ER) 159 mg PO TID fluticasone propionate 220 mcg/actuation 2 puffs inhalation ONCE gabapentin 300 mg PO BEDTIME rizatriptan 10 mg PO Q2-4H PRN ubrogepant (Ubrelvy) mg PO venlafaxine ER (Effexor XR) 150 mg PO BEDTIME HPI Comments Details: 59-year-old female patient presenting for evaluation of a recent CT abdomen and pelvis which revealed evidence of intra-abdominal fat necrosis. Patient reports drinking a glass of water and subsequently aspirating resulting in severe coughing episodes. She subsequently developed pneumonia which required antibiotics. She had persistent coughing over the next several weeks. On July 08 she began to no left upper quadrant abdominal pain. The pain persisted and on 07/11/2024 she was evaluated at [facility]. Workup with CT abdomen and pelvis revealed postoperative changes consistent with a subtotal colectomy with an ileocolonic anastomosis in the right lower quadrant. No other findings were evident to explain the patient's abdominal symptoms. She returned to [facility] ED on July 13 with increased abdominal pain. This time a repeat CT showed evidence of a 4.9 x 2.6 x 8 cm area of inflammatory change suggestive of fat necrosis in the left lower quadrant. Surgical consultation at that time confirmed the CT findings but no surgical intervention was recommended. Since this time the patient's cough has improved as has her abdominal pain. She denies any nausea, vomiting, fever, chills, diarrhea or constipation. She currently denies any abdominal pain. She has scheduled for a minimally invasive aortic valve replacement [place] [facility] She presents today for clearance for the heart surgery from a general surgical standpoint. [facility] Medical History (Updated 08/06/24 @ 16:07 by Estuardo Evans MD) GERD (gastroesophageal reflux disease) Migraines IBS (irritable bowel syndrome) Fibromyalgia C. difficile enteritis BLADIMIR (generalized anxiety disorder) Surgical History (Updated 08/06/24 @ 14:29 by JOSE Black) Hx of umbilical hernia repair History of bilateral carpal tunnel release History of partial surgical removal of colon (2019) Social History (Updated 08/06/24 @ 14:29 by JOSE Black) Alcohol intake: never Patient Tobacco Use Status: Never used Tobacco Female Reproductive History Menstrual Total pregnancies: 2 Full term: 2 Review of Systems Const Denies chills, Denies fatigue, Denies fever(s) and Denies poor appetite ENT Denies dysphagia Card Denies chest pain, Denies irregular heart rhythm, Denies leg edema, Denies palpitations and Denies dyspnea Resp Denies cough and Denies dyspnea GI Denies abdominal pain, Denies dysphagia, Denies diarrhea, Denies nausea and Denies vomiting Endo Denies fatigue and Denies palpitations Physical Exam Vital Signs: Last Vital Signs Pulse 86 08/06/24 14:30 BP 118/63 08/06/24 14:30 BMI result Body Mass Index 19.5 Const General: cooperative and no acute distress Nutritional Appearance: well nourished Orientation/consciousness: patient oriented x3 Limitations: no limitations HEENT Head: Yes normocephalic and Yes atraumatic Ears: hearing grossly normal bilaterally Resp Effort & Inspection: normal respiratory effort, no audible wheezes, no cough and no respiratory distress Cardio Jugular venous distension: no JVD GI Inspection: Yes normal to inspection Palpation (GI): Soft to palpation, nontender, no guarding, not rigid and No hepatosplenomegaly present Percussion: Yes normal to percussion Auscultation: normal bowel sounds Rectal Exam - Female: deferred Skin Other: Warm, dry, no rash Neuro General: patient oriented x3 Extrem General: Yes no clubbing, cyanosis or edema Results Reviewed Results Reviewed: CT abdomen and pelvis 07/13/2024: Assessment & Plan Assessment & Plan (1) Fat necrosis of mesentery: Code(s): 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 This occurred during a prolonged period of severe coughing from an aspiration pneumonia. Her symptoms included abdominal pain mainly in the left lower quadrant. Once her coughing resolve the abdominal pain also resolved. The patient is currently asymptomatic with no further abdominal pain, nausea or vomiting. Examination today reveals no tenderness to deep palpation and no peritoneal signs. CT findings appear consistent with intra-abdominal trauma secondary to the prolonged coughing. As her abdominal exam is now much improved, no surgical intervention is required. There are no contraindications to proceeding with her proposed aortic valve surgery from my standpoint. She should return as needed for any new problems. Coding Level of Care Code New Pt Level 4 (64780) Diagnoses Fat necrosis of mesentery K65.4
[2024-08-06 14:30] VITALS: BP 118/63; PULSE 86; BMI 19.5
--- OUTSIDE RECORDS SUMMARY | 2024-08-06 15:51 | XMS_ITS | Data Portability ---
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 [email or web address] Not available 04/05/2024 14:36:01 04/11/2024 04/11/2024 I [...] W/O CONTRAST EVAL FOR MMT 2024 025 [facility] ([facility]), [address], [place], [address], 04/04/2024 09:07:59 Medication Orders None recorded. Patient TargetsNo targets recorded. Patient InstructionsNo instructions recorded. Reason for Referral None Reported. Results Created Date Observation Date Name Description Value Unit Range Abnormal Flag Note LastModifiedBy Organization Detail LastModifiedTime 03/25/1903/25/2024 XR, knee, 4 or more view No observ ation record ed. [facility] [address], [place], [address], 03/29/2024 14:26:17 04/04/19 25 04/02/2024 MRI, knee, w/o contr ast [facility] Access ion Number : [id number] Jamari brown Name: Natalie Spears Record Number : [id number] Date of : 1965 Date of Exam: 2024 Referr ing Physic burton: [facility] [address], [address] [facility], [facility] [address] Exam: MR Knee (C-) CPT 50910 - Right Room Descri ption: [facility] Pion 3T MRI right knee Histor y: Pain Findin gs: Medial menisc us is intact . Mild thinni ng and irregu larity within immigration paralegal ior weight bearin g surfac e cartil age of the medial femora l condyl e near the interc ondyla r notch. Latera l menisc us is intact . 1 x 1.5 cm focal chondr al defect within immigration paralegal ior nonwei ghtbea ring surfac e cartil [...] ly Signed By: Estela Kim MD [email or web address] [facility] ([facility]) [address], [place], [address], 04/05/2024 06:58:45 Result Notes Documentation Provider Name and Address Organization Details Recorded Time Mri, Knee, W/o Contrast : [facility] Accession Number: [id number] Patient Name: Rosie Spears Date of : 1965 Date of Exam: 04-02-2024 Referring Physician: Sony Hernandez [facility] ([facility]) [address], [address] [place], [place] [address] Exam: MR Knee (C-) CPT 46892 - Right Room Description: [facility] 3T MRI right knee History: Pain Findings: Medial meniscus is intact. Mild thinning and irregularity within posterior weightbearing surface cartilage of the medial femoral condyle near the intercondylar notch. Lateral meniscus is intact. 1 x 1.5 cm focal chondral defect within posterior nonweightbearing surface cartilage of the lateral femoral condyle on image 11 of series 3. The ACL and PCL are intact The MCL is intact The LCL complex including the biceps femoris, popliteus and fibular collateral ligaments are intact The medial and lateral patellar retinacula are intact. Diffuse absence of patellar cartilage. Thinning, irregularity and fissuring within trochlear groove cartilage. Small patellofemoral osteophytes The extensor mechanism is intact. Loculated Crawford's cyst measures up to 3 cm AP by 12 cm craniocaudal. Most caudal portion of the Crawford's cyst is mildly complex and has some mass effect on the underlying medial head of the gastrocnemius muscle. Impression: No evidence of meniscus or ligament tear. Medial compartment, lateral compartment and advanced patellofemoral compartment chondromalacia is outlined above. Small patellofemoral compartment osteophytes. Large loculated Crawford's cyst as detailed above Electronically Signed By: Andrea Hernandez PA-C [address], [place], [address], [facility] 04/05/2024 06:58:45 Problems Name Problem SNOMED Code Status Onset Date Resolution Date Notes Provider Name and Address Organization Details Recorded Time Trigger thumb of left hand 862908291110 107 Active 2023 Sony Hernandez PA-C [address], [place], [address] , [facility] 4 14:24:47 Impingeme nt syndrome of right shoulder region 616959253367 102 Active 2023 Sony Hernandez PA-C [address], [place], [address] , [facility] 4 14:24:55 Pain in right lower limb 649947628 Active 2024 FEDE [facility] 5 15:15:54 Osteoarth ritis of right knee joint 788568595852 100 Active 2024 Sony Hernandez PA-C [address], [place], [address] , [facility] 5 14:15:37 Primary gonarthro sis, bilateral 362055356 Active 2024 Sony Hernandez PA-C [address], [place], [address] , [facility] 5 14:57:31 Pain of right shoulder region Active 2024 Sony Hernandez PA-C [address], [place], [address] , [facility] 5 14:57:38 Lateral epicondyl itis of left humerus 961399967697 100 Active 2017 Problem Code: M77.12; Problem Code Type: ICD-10; Status: 'A'; Not Available [facility] 4 10:55:47 Chondroma lacia of left patella 078917333183 106 Active 2017 Problem Code: M22.42; Problem Code Type: ICD-10; Status: 'A'; Not Available [facility] 4 10:55:47 Carpal tunnel syndrome of left wrist 369046374048 102 Active 2017 Problem Code: G56.02; Problem Code Type: ICD-10; Status: 'A'; Not Available [facility] 4 10:55:47 Bursitis of left knee 504188345098 9109 Active 2017 Problem Code: M70.52; Problem Code Type: ICD-10; Status: 'A'; Not Available [facility] 4 10:55:47 Lesion of right ulnar nerve 957812078028 103 Active 2017 Problem Code: G56.21; Problem Code Type: ICD-10; Status: 'A'; Not Available [facility] 4 10:55:47 Osteoarth ritis of left knee joint 771976146589 109 Active 2023 Sony Hernandez PA-C [address], [place], [address] , [facility] 5 15:41:43 Problem Notes None recorded. Procedures Surgical History Date Name Laterality Status Provider Name and Address Organization Details Recorded Time 5 JZShoulder INJ completed Sony Hernandez PA-C [address], [place], [address], [facility] 06/27/2024 14:57:21 5 JZKNEE INJ Dragan completed Sony Hernandez PA-C [address], [place], [address], [facility] 06/27/2024 14:56:40 5 JZKNEE INJ completed Sony Hernandez PA-C [address], [place], [address], [facility] 05/02/2024 14:00:58 5 Euflexxa Knee Injection completed Sony Hernandez PA-C [address], [place], [address], [facility] 04/11/2024 14:15:52 5 JZKNEE INJ completed Sony Hernandez PA-C [address], [place], [address], [facility] 04/05/2024 14:46:52 5 Euflexxa Knee Injection completed Sony Hernandez PA-C [address], [place], [address], [facility] 04/05/2024 14:46:48 5 JZ Knee Aspiration completed Sony Hernandez PA-C [address], [place], [address], [facility] 03/28/2024 15:41:31 5 Euflexxa Knee Injection completed Sony Hernandez PA-C [address], [place], [address], [facility] 03/28/2024 15:40:32 4 JZKNEE INJ Dragan completed Sony Hernandez PA-C [address], [place], [address], [facility] 01/25/2024 13:30:33 4 JZ Knee Aspiration completed Sony Hernandez PA-C [address], [place], [address], [facility] 11/23/2023 14:45:29 4 JZKNEE INJ completed Sony Hernandez PA-C [address], [place], [address], [facility] 08/24/2023 14:24:38 4 JZShoulder INJ completed Sony Hernandez PA-C [address], [place], [address], [facility] 08/24/2023 14:24:31 4 JZTrigger Finger Injection completed Sony Hernandez PA-C [address], [place], [address], [facility] 08/24/2023 14:24:36 4 JZKNEE INJ completed Sony Hernandez PA-C [address], [place], [address], [facility] 06/22/2023 10:30:18 4 Sports Knee Aspiration completed Sony Hernandez PA-C [address], [place], [address], [facility] 05/11/2023 13:43:25 Imaging Results None recorded. Procedure Notes None recorded. Medical Equipment None Reported. Allergies Allergen ID Allergen Name Allergen Category Reaction Reaction Severity Criticality Documentation Date Start Date Code Code System Note Provider Name and Address Organization Details Recorded Time 88789 Bactrim medicatio n Not available Not available Not available 04/25/20232010 58816 9 RxNorm Aller gyRea ction : 'Skin React ion'; Not Available [facility] 4 15:13:19 59296 Substance with sulfonami de structure and antibacte rial mechanism of action (substanc e) medicatio n Not available Not available Not available 04/25/20232010 74724 8003 SNOMED Aller gyRea ction : 'Skin React ion'; Not Available [facility] 4 15:13:19 27387 Macrobid medicatio n Not available Not available Not available 04/25/20232010 37955 1 RxNorm Aller gyRea ction : 'Skin React ion'; Not Available [facility] 4 15:13:19 Medications Name Sig Start [...] Updated DateTime 03/28/2024 162.56 cm 18.4 kg/m2 11462.38 g [facility] 03/28/2024 15:04:33 Date Recorded Body height Body mass index (BMI) Body weight Provider Name and Address Organization Details Last Updated DateTime 04/05/2024 162.56 cm 18.4 kg/m2 87487.38 [facility] 04/05/2024 14:36:23 Date Recorded Body height Provider Name an d Address Organization Details Last Updated DateTime 04/11/2024 162.56 cm Librado Ingram-C [address], [place], [address], [facility] 04/11/2024 14:15:39 Date Recorded Body height Body mass index (BMI) Body weight Provider Name and Address Organization Details Last Updated DateTime 05/02/2024 162.56 cm 18.4 kg/m2 18347.38 g [facility] 05/02/2024 13:30:39 Date Recorded Body height Body mass index (BMI) Body weight Provider Name and Address Organization Details Last Updated DateTime 06/27/2024 162.56 cm 18.4 kg/m2 04900.38 g Martin [facility] 06/27/2024 14:46:23 Social History None recorded. Functional Status None recorded. Mental Status None recorded. Family History Nothing Reported. Medical History No medical history recorded. Gynecological HistoryNo gynecological history recorded. Obstetrics History GPAL:G 0 P 0 0 0 0 Past Encounters Encounter ID Performer Location Encounter Start Date Encounter Closed Date Diagnosis/Indication Diagnosis SNOMED-CT Code Diagnosis ICD10 Code Diagnosis Note [id number] MD Freya Sainz [address] [facility] [address] 05/11/2023 13:16:52 05/11/2023 13:41:59 Bursitis of left knee 0100731954 457513 M70.52 Osteoarthr itis of left knee joint 9474205064 81813 M17.12 [id number] WARREN Ingram [address] [place] [address] 06/22/2023 09:59:41 07/13/2023 14:44:21 Osteoarthritis of left knee joint 1677819866 47216 M17.12 [id number] WARREN Ingram [address] [place] [address] 08/24/2023 13:32:07 09/22/2023 10:12:58 Bursitis of left knee 9451598434 837908 M70.52 Trigger th umb of left hand 0147001223 66699 M65.312 Impingemen t syndrome of right shoulder region 0302070894 43672 M75.41 [id number] Sony Hernandez PA-C [address] [place] [address] 11/23/2023 14:26:42 11/23/2023 14:54:15 Bursitis of left knee 4263586794 415179 M70.52 [id number] Sony Hernandez PA-C [address] [place] [address] 01/25/2024 12:56:03 02/21/2024 08:16:12 Bursitis of left knee 2954530066 636142 M70.52 Primary go narthrosis, bilateral 729089647 M17.0 [id number] Sony Hernandez PA-C [facility] [address] [place] [address] 03/28/2024 14:58:29 04/11/2024 15:12:47 Derangement of right knee 7462283481 3724844 M23.91 Osteoarthr itis of left knee joint 1587277311 16372 M17.12 [id number] Sony Hernandez PA-C [facility] [address] [place] [address] 04/05/2024 14:32:09 04/24/2024 09:03:28 Osteoarthritis of left knee joint 0900813754 64941 M17.12 Osteoarthr itis of right knee joint 1922378262 63294 M17.11 [id number] Sony Hernandez PA-C [facility] [address] [place] [address] 04/11/2024 14:08:01 04/27/2024 11:55:54 Osteoarthritis of left knee joint 1129576903 12400 M17.12 [id number] WARREN IngramA - [address] [place] [address] 05/02/2024 13:25:17 05/17/2024 13:17:34 Bursitis of left knee 1766156045 770957 M70.52 [id number] WARREN Ingram [address] [place] [address] 06/27/2024 14:40:01 07/13/2024 11:13:21 Primary gonarthrosis, bilateral 181776217 M17.0 Pain of ri ght shoulder region 9906043675 M25.511 Health Concerns Section Related Observation LastModified by Organization Detai ls LastModified Time None Recorded Concern Status LastModified by Organization Details LastModified Time None Recorded Advance Directives Directive None Recorded Payers Insurance Date Sequence Insurance Name Policy Number Policy Ibarra Covered Member ID Ibarra Member ID Guarantor Name 03/23/2024 1 [facility] [employer] - TOGETHER (MEDICAID HMO) [id number] Rosie Spears [id number] Rosie Spears 07/13/2024 1 [facility] Rosie Spears [id number] Rosie Spears OBGyn Episode No OBEpisode recorded.
== END 2024-08-06 14:47 | disposition home or self-care (01) ==
LOC: HO.HGS 14:07
PROVIDERS: PCP Physician Assistant Medical; Visit Provider Surgery
DX: K65.4 Sclerosing mesenteritis (principal)
CPT/HCPCS: 99204